=== PATIENT | male | born 1970 | race Caucasian/White ===

== ENCOUNTER 2025-01-09 13:12 | Emergency (ER) | payer MEDICARE ==
[~2025-01-09] VITALS: Ht 180.3 cm; Wt 88.0 kg
[2025-01-09 13:14] VITALS: O2SAT 18
[2025-01-09 13:17] VITALS: BP 230/111; PULSE 88; RESP 18; TEMP 36.7; O2SAT 100
[2025-01-09] MEDS: AMLODIPINE 10MG TABLET PO ONE (14:12)
[2025-01-09] MEDS: LOSARTAN 50 MG TABLET PO ONE (14:12)
[2025-01-09 15:18] LABS: BASOPHILS % 1.0 % (0.0-2.0); EOSINOPHILS % 3.3 % (0.0-5.0); HEMATOCRIT. 33.0 % (42.0-52.0); HEMOGLOBIN. 11.0 g/dL (14.0-18.0); LYMPHOCYTES % 22.2 % (20.0-50.0); MEAN PLATELET VOLUME 9.2 fl (7.4-10.4); MONOCYTES % 5.8 % (2.0-8.0); NEUTROPHILS % 67.7 % (40.0-76.0); PLATELET 261 x1000/uL (130-400); RED BLOOD CELL COUNT 3.69 mill/uL (4.7-6.1); RED CELL DISTRIBUTION WIDTH 14.5 % (11.6-14.6)
[2025-01-09 15:37] LABS: CREATININE 2.2 mg/dL (0.6-1.3); UREA NITROGEN BLOOD 36.0 mg/dL (9-23)
[2025-01-09] MEDS ORDERED: AMLO10TA80 MT (16:04)
[2025-01-09] MEDS ORDERED: LOSARTAN 50 MG TABLET PO ONE (16:15)
== END 2025-01-09 16:15 | disposition left against medical advice (07) ==
LOC: ER 13:12
DX: I16.0 Hypertensive urgency (principal); E11.9 Type 2 diabetes mellitus without complications; I10 Essential (primary) hypertension; Z55.6 Problems related to health literacy; Z87.891 Personal history of nicotine dependence; Z53.29 Procedure and treatment not carried out because of patient's decision for other reasons
CPT/HCPCS: 36415; 80048; 85025; 99283